=== PATIENT | female | born 1930 | race Caucasian/White ===

== ENCOUNTER 2017-06-25 15:04 | Inpatient (IN) | payer MEDICARE, OTHER ==
[2017-06-25] MEDS ORDERED: Sodium Chloride 0.9% 1,000 ML IV SCH (16:30)
[2017-06-25] MEDS ORDERED: Diltiazem 25 MG/5 ML SDV IVPUSH PRN (16:42)
[2017-06-25] MEDS ORDERED: Diltiazem 25 MG/5 ML SDV IVPUSH ONE (16:45)
[2017-06-25] MEDS: Sodium Chloride 0.9% 10 ML Syringe FLUSH PRN ×2 (17:00→20:37)
[2017-06-25] MEDS: Diltiazem 100 MG in Sodium Chloride 0.9% 100 ML IV SCH (18:45)
[2017-06-25] MEDS ORDERED: Enoxaparin 30 MG/0.3 ML Syringe SUBCUT SCH (19:00)
[2017-06-25] MEDS ORDERED: Furosemide 20 MG/2 ML VIAL IVPUSH ONE (20:20)
[2017-06-25] MEDS: Codeine/guaiFENesin 100-10 MG/5 ML Syrup 5 ML Cup PO PRN (21:59)
[2017-06-25] MEDS: Zolpidem 5 MG Tab PO SCH (22:48)
[2017-06-26] MEDS: Diltiazem 100 MG in Sodium Chloride 0.9% 100 ML IV SCH (01:42)
[2017-06-26] MEDS: Codeine/guaiFENesin 100-10 MG/5 ML Syrup 5 ML Cup PO PRN (01:51)
[2017-06-26] MEDS ORDERED: Furosemide 20 MG/2 ML VIAL IVPUSH ONE (02:03)
[2017-06-26] MEDS: Sodium Chloride 0.9% 10 ML Syringe FLUSH PRN ×2 (02:10→11:30)
[2017-06-26] MEDS ORDERED: Benzonatate 100 MG Cap PO ONE (04:03)
[2017-06-26] MEDS ORDERED: Diltiazem IR 30 MG Tab PO SCH (10:00)
--- NOTE | 2017-06-26 11:13 | PN ---
DATE SEEN: 06/26/2017 SUBJECTIVE: Eda Fenton is an 87-year-old female, admitted yesterday with marked tachycardia, atrial fibrillation rhythm. She was given 2 boluses of IV Cardizem, rate reduced into the 110s, persistent tachycardia resulting IV Cardizem drip. Doing well in that regard. Heart rate slowed down in the 80s, persistent atrial fibrillation, asymptomatic. Edema of her lower extremities under review. Echocardiogram planned for today. Laboratory studies reviewed and appropriate. OBJECTIVE: VITAL SIGNS: Stable. NECK: No JVD. CHEST: Decreased breath sounds in both lung brewster, but pretty clear. HEART: Irregularly regular rate in the 80s. ABDOMEN: Benign. EXTREMITIES: Edema improving. ASSESSMENT: Protracted atrial fibrillation, likely some cardiac decompensation, rate control improved. PLAN: We will add oral Cardizem 60 mg b.i.d., wean Cardizem. Complementary care and well being. Echocardiogram to be performed today. /[id number] WESLEY/ALEXIA
[2017-06-26] MEDS: Hydrochlorothiazide 25 MG Tab PO SCH (19:01)
[2017-06-26] MEDS ORDERED: Enoxaparin 30 MG/0.3 ML Syringe SUBCUT SCH (20:00)
[2017-06-26] MEDS: Cephalexin 500 MG Cap PO SCH (20:34)
[2017-06-26] MEDS: Diltiazem IR 30 MG Tab PO SCH (20:34)
[2017-06-26] MEDS: Benzonatate 100 MG Cap PO PRN (20:59)
[2017-06-26] MEDS: Zolpidem 5 MG Tab PO SCH (21:30)
[2017-06-27] MEDS: Cephalexin 500 MG Cap PO SCH ×2 (08:34→14:58)
[2017-06-27] MEDS: Furosemide 20 MG Tab PO SCH ×2 (08:34→14:57)
[2017-06-27] MEDS: Diltiazem IR 30 MG Tab PO SCH (08:36)
[2017-06-27] MEDS ORDERED: Carvedilol 3.125 MG Tab PO SCH (10:15)
[2017-06-27] MEDS: Hydrochlorothiazide 25 MG Tab PO SCH (10:35)
--- NOTE | 2017-06-27 11:58 | PN ---
DATE SEEN: 06/27/2017 SUBJECTIVE: Eda Fenton is an 87-year-old female admitted with uncontrolled rapid atrial fibrillation. Responding well to Cardizem therapy now into the 110s. Asymptomatic. Echocardiogram revealed ejection fraction 40-45% with wall motion issues and no pulmonary hypertension. No evidence of any significant valvular disease and small pleural effusion. Feeling better this morning. Outstanding laboratory work none. Echocardiogram described above. OBJECTIVE: VITAL SIGNS: Stable. 36.4, 98 is the pulse, 146/76, 20, 93% on room air. GENERAL: Appears comfortable. Speech was fluent. NECK: Benign. Thyroid small. CHEST: Good air exchange throughout all lung brewster. Distant heart sounds with atrial fibrillation. ABDOMEN: Benign. EXTREMITIES: Well perfused. ASSESSMENT: Atrial fibrillation, rate controlled, part of underlying congestive heart failure, whether this is moderately preserved versus nonpreserved ejection fraction. PLAN: We will add low-dose carvedilol, furosemide. Continue Cardizem 60 mg t.i.d. and continue cephalexin for antibiotic therapy. The patient is comfortable in that regard. We will discharge to follow up with Dr. Roa appropriately. /[id number] WESLEY/ALEXIA
--- NOTE | 2017-06-27 11:58 | HP ---
ADMISSION DATE: 06/25/2017 REASON FOR VISIT: Rapid heartbeat, weakness. HISTORY OF PRESENT ILLNESS: Eda Fenton is an 87-year-old female, who resides in [facility], who was admitted - direct admission from [facility]. Routinely sees Dr. Roa at [facility]. History of intermittent atrial fibrillation "too many years to count". More recently, the heart rate has been faster. She has been a little symptomatic, little fatigable, tired. No chest pain or respiratory difficulty. Ankles have become more swollen. She was seen by Dr. Roa. Tachycardia 150s, atrial fibrillation. Admitted for intervention and care. MEDICATIONS: Daily medications include: 1. Hydrochlorothiazide 12.5, one half tablet 1 daily. 2. Robitussin with codeine a teaspoon or two q.i.d. p.r.n. for cough. 3. Ambien 5 mg at bedtime, sleep enhancement. 4. Premarin 0.625 one daily, menopause. 5. Aspirin. 6. Multivitamin. ALLERGIES: Allergic to sulfa with rash. Terazosin with rash. Darvon with nausea. PAST MEDICAL HISTORY: Significant for operative procedures, including hysterectomy, bilateral oophorectomy, and hernia repair. No other operative procedures, hospitalizations, unusual childhood diseases, major injuries, or fractures. SOCIAL HISTORY: Happily . 89, good health. 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 Nonsmoker. Nil alcohol consumption. No illicit drug use. FAMILY HISTORY: Noncontributory. REVIEW OF SYSTEMS: CONSTITUTIONAL: Feeling a little bit tired. EYES: Sees well with correction. EARS: Hears well with some difficulty in crowds. OROPHARYNX: Intact dentition. No loose teeth. CHEST: No cough, wheeze, or congestion. CARDIOVASCULAR: Denies chest pain, palpitations, or syncope. Rapid heartbeat noted. GI: Regular predictable stools, no blood in stools. : Good voiding pattern, mild stress incontinence. SKIN: No new lesions, eruptions, or moles. ENDOCRINE: No excessive thirst, urination. ALLERGY: No chronic cough, wheeze, or congestion. PSYCHIATRIC: Mood stable. PHYSICAL EXAMINATION: VITAL SIGNS: Stable and documented. CONSTITUTIONAL: Elderly, cooperative, conversant. HEENT: Funduscopic benign. Conjunctivae clear. Bright tympanic membranes. Clear nasal discharge. Mouth and oropharynx are clear. Tongue midline. Good gag reflex. NECK: Benign. Thyroid small. No carotid bruits. CHEST: Clear in all lung brewster. HEART: Irregularly irregular at 140 to 150. ABDOMEN: Benign. Lower abdominal surgical scars well healed. PELVIC AND RECTAL: Deferred. EXTREMITIES: Revealed moderate edema, knee down. Peripheral pulses were manageable, but decreased. Sensation normal. Toes downgoing. LABORATORY STUDIES: Noted. Chest x-ray to be reviewed from [facility]. ASSESSMENT: 1. An 87-year-old female presents with protracted episode of atrial fibrillation likely 1 week's duration, recurrent. History of no anticoagulant therapy. 2. Status post herniorrhaphy, status post hysterectomy, bilateral oophorectomy, insomnia. 3. Allergies to Darvon, sulfa, and terazosin. PLAN: Admission to hospital is indicated. We will start with a couple of doses of IV Cardizem, see clinical response. Cardizem drip is appropriate, medical management to follow. Spoke to anticoagulant therapy including Coumadin and other atypical agents, under consideration. /[id number] WESLEY/ALEXIA
[2017-06-27] MEDS: Benzonatate 100 MG Cap PO PRN (13:55)
[2017-06-27] MEDS ORDERED: Diltiazem IR 30 MG Tab PO SCH (14:00)
--- NOTE | 2017-06-28 08:04 | DISCH ---
DISCHARGE DATE: 06/27/2017 DISCHARGE DIAGNOSES: 1. Acute atrial fibrillation, rate controlled. 2. Underlying congestive heart failure. HOSPITAL COURSE: Eda Fenton is an 87-year-old female admitted with complicated rapid atrial fibrillation with tachycardia to 150. She was admitted, IV Cardizem, rate control adjustment of oral medication, Cardizem 60 mg b.i.d. increased to t.i.d. Echocardiogram revealed ejection fraction of 40% to 45% suggesting nonpreserved ejection fraction of CHF. She was also placed on low-dose carvedilol, furosemide, continue use of Cardizem, and the addition of cephalexin for right lower extremity cellulitis. Implications, care, recommendations, modification, close observation of weight all timely and appropriate. Please see med recon list. /[id number] WESLEY/ALEXIA
== END 2017-06-27 19:45 | disposition home or self-care (01) | DRG 309 ==
LOC: FB.ICU 15:17
PROVIDERS: ADMIT Family Medicine; ATTEND Family Medicine
DX: I48.91 Unspecified atrial fibrillation (principal); I50.20 Unspecified systolic (congestive) heart failure; L03.115 Cellulitis of right lower limb; Z88.5 Allergy status to narcotic agent; Z88.2 Allergy status to sulfonamides; Z88.8 Allergy status to other drugs, medicaments and biological substances
CPT/HCPCS: 36415; 80053; 83880; 85027; 85379; 93306; A9270-GY; J1650; J1940; J3490; J7030; J7040; J7050

== ENCOUNTER 2017-06-29 13:42 | Emergency (ER) | payer MEDICARE, OTHER ==
[2017-06-29] MEDS ORDERED: Potassium Chloride 10% 20 MEQ/15 ML Soln 15 ML UD Cup PO ONE (16:03)
--- NOTE | 2017-06-30 09:13 | ER ---
DATE SEEN: 06/29/2017 TIME: The patient was seen on arrival at 1345 hours. CHIEF COMPLAINT: Confusion, echolalia, and perseveration. 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 It was noted, she got up this morning, went to the bathroom and instead of washing her hands with soap, she was washing her hands with lotion. She had no paresis or weakness, became confused and would repeat words and not follow up words and not follow conversation-parallel conversation. She was not making sense. She had no asymmetry of face, difficulty with hearing or vision, difficulty walking, paresis or weakness. No nausea or vomiting, but she states she has mild headache. She takes estrogen when she goes off. She has depression and in year 1999 had electroshock therapy for depression, which seemed to help. MEDICATIONS: 1. She has Tensilon, which she was started as with 3 other medicines of;. a. Carvedilol 3.125 mg b.i.d. b. Diltiazem 60 mg t.i.d. c. Losartan 20 mg daily started on 06/27/[address] Juárez as she was thought to have increased congestive heart failure and atrial fibrillation. No anticoagulants or aspirin were started. d. She was placed on Keflex for possible right lower leg infection, 500 mg t.i.d. Other medications; 1. Zolpidem 5 mg at bedtime. 2. Lasix 20 mg daily. 3. Premarin 0.625 mg daily. ALLERGIES: Darvocet, sulfa, and tetracycline. PAST SURGICAL HISTORY: The patient is status post hysterectomy. REVIEW OF SYSTEMS: CONSTITUTIONAL: The patient cannot give me review of systems, but the son and also note that there are no problems. She wears glasses. She has slightly decreased hearing. She has had mild difficulty swallowing (some days prior to this). She uses applesauce to take her pills. CARDIORESPIRATORY: Negative symptoms, except for the new onset of atrial fibrillation, indeterminate number of days she has had it. She has not been on anticoagulation for atrial fibrillation. GI: No change. : Denies significant symptoms. No incontinence. MUSCULOSKELETAL: Negative. No arthritis. No history of heart attack, stroke, or other serious illnesses, except for depression with electroshock therapy. OB HISTORY: She is a 4, para 4-0-0-4. FAMILY HISTORY: She had apparently 6 sisters. One sister of motor vehicle accident. One other sister at age 98. One sister has cancer. Another sister with heart disease. One brother had cancer and another brother . PHYSICAL EXAMINATION: VITAL SIGNS: Blood pressure 112/86, heart rate 144, respirations 20, oxygen saturation 95% on room air, and temperature 36.9 degrees centigrade. HEENT: PERRLA intact. Eyegrounds normal appearance. No hemorrhages or exudates. EOMs normal. She has difficulty following commands. Hearing is good. Pharynx without abnormality. Gag in place. Tongue is midline and also uvula is midline. Speech is appropriate and understandable. NECK: No bruits, masses, megaly, or cervical adenopathy. Supple. LUNGS: Clear without rales, rhonchi, or wheezes. HEART: S1, S2. No murmur. She has an irregular regular rhythm. Heart rate is 112. ABDOMEN: Soft. No guarding. No abdominal discomfort. No masses. No CVA percussion tenderness. EXTREMITIES: Lower extremities, mild erythema of lower extremities. She has 1 to 2+ edema. Bilateral dorsalis pedis intact. No tenderness of the legs. No vascular tenderness of the vascular structures in lower extremities. NEURO: Deep tendon reflexes 1+ in the upper and lower extremities. No hyperreflexia. Cranial nerves 2 through 12 intact. The patient is oriented x1. She did not know what day, she kept saying Sunday, today is Sunday, and she was not sure about the month. She has perseveration. She does not process information. Addition she is not able to complete. Gait is appropriate. Romberg is negative. Muscle strength in upper and lower extremities normal. When asked to lift her leg, she does not lift her leg, she lifts her right arm. When asked with the other leg, she lifts her other arm. She does not lift her legs. She does not have extinction. Her NIH stroke scale is 8. IMAGING: CAT scan of the head, no CV bleed. LABORATORY DATA: Hypokalemia noted, 2.8. Sodium 124, chloride 86, glucose 140, calcium 8.1, alkaline phosphatase 114, troponin 0.017, and albumin 2.6. Hemoglobin 12.1, platelet count elevated at 500,000, thrombocythemia. Neutrophils 88, lymphocytes 5, INR 1.19. ASSESSMENT: 1. Cerebrovascular accident with negative CT of the head, except for old lacunar infarcts. 2. Hyponatremia, hypokalemia, and hypochloremia secondary to diuretic use that was started recently. 3. Resolving cellulitis of right lower extremity. She was noted to have some erythema, minimal erythema present. No tenderness. No sign of any site of infection. There is mild erythema of both lower extremities, more notable on the right lower extremity. 4. Probable mild congestive heart failure. 5. Thrombocythemia. 6. Normal white count with neutrophilia. 7. Atrial fibrillation. 8. Recent medications started, Tensilon, carvedilol, diltiazem, Lasix, the latter resulted in dehydration, hyponatremia, hypochloremia, and hypokalemia. PLAN: Her status was discussed with Dr. Luis Mcdonald and also Dr. Leigh. The patient will be transferred to [facility] for further rehabilitation and an MRI to evaluate [employer] status. Since the CT was negative, Dr. Luis Mcdonald suggested perhaps she might have encephalopathy since she has repetitive behavior with washing her hands with hand lotion and not soap. The patient's family would like to have her transferred by ground. She is stable presently. A transfer by ground is planned. The patient received an extra dose of carvedilol for a total dose of 0.65 instead of 3.25 in the ED. /[id number] JENNY/ALEXIA
--- NOTE | 2017-07-03 08:30 | CT ---
INDICATION: Probable CVA, onset indeterminate last night, with confusion. CT HEAD WITHOUT CONTRAST: Serial contiguous 2.5 and 5-mm sections were obtained through the brain without contrast and revealed minimal calcifications in the internal carotid arteries. Total Exam DLP = 845.81 mGy-cm. No shift of midline structures was identified. Ventricles are slightly prominent, compatible with a mild degree of central atrophy. White matter changes are noted, most likely on the basis of a moderate degree of microvascular disease, although other cause of leukoencephalopathy, such as anoxic encephalopathy, cannot be entirely excluded. In the basal ganglia bilaterally, there are some irregular areas of decreased density which may represent minimal lacunar infarcts, greater on the left than right. No finding to suggest an acute intracranial abnormality was identified - no bleeding site or hematoma was identified. A retention cyst is suggested in the right frontal air cell with paranasal sinuses and mastoid air cells otherwise well aerated. No cranial abnormality was seen. IMPRESSION: 1. No definite acute intracranial abnormality. 2. Mild internal carotid artery calcification. 3. 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 Report was called to Dr. Orr at 1424 hours, 06/29/2017. [facility]
== END 2017-06-29 16:35 ==
LOC: FB.ED 13:42
DX: I63.9 Cerebral infarction, unspecified (principal); E87.1 Hypo-osmolality and hyponatremia; E87.6 Hypokalemia; E87.8 Other disorders of electrolyte and fluid balance, not elsewhere classified; L03.115 Cellulitis of right lower limb; D47.3 Essential (hemorrhagic) thrombocythemia; I48.91 Unspecified atrial fibrillation
CPT/HCPCS: 36415; 70450; 80053; 84484; 85025; 85610; 85651; 93005; 99285; A9270; 93010